=== PATIENT | male | born 1940 | race Caucasian/White ===

== ENCOUNTER → 2016-12-26 | Outpatient (CLI) | payer MEDICARE, OTHER ==
[~2016-12-26] MED LIST: AMLO5TAB2 PO; ASPI1TAB69 PO; DORZ2SOL EACH EYE; FENO145T2 PO; FIBE625T10 PO; FISH1000 PO; GLUC750C PO; HYDR25TA5 PO; LATA0.002 EACH EYE; LIPI40TA PO; LISI40TA PO; METF500T PO; MULT-135 PO
[2016-12-26 10:20] LABS: HEMATOCRIT 35.7 % (39.0-51.0); MEAN CELL VOLUME 89.6 FL (80.0-100.0); MEAN CORPUSCULAR HEMOGLOBIN 30.6 PG (27.0-34.0); MEAN CORPUSCULAR HGB CONC 34.2 % (32.0-36.0); PLATELET COUNT 199 TH/MM3 (150-450); RED BLOOD COUNT 3.99 MIL/MM3 (4.50-5.90); REVIEW FLAG FINAL; WHITE BLOOD COUNT 5.9 TH/MM3 (4.0-11.0)
--- NOTE | 2016-12-27 10:30 | EKG ---
Date Performed: 12/26/2016 Time Performed: 10:16:34 PTAGE: 76 years EKG: Sinus rhythm . Possible lateral infarct - age undetermined Inferior T wave changes are nonspecific Abnormal ECG NO PREVIOUS TRACING DOCTOR: Cary Morales Interpretating Date/Time 12/27/2016 10:25:57
== END ==
LOC: PHPRE 09:05
PROVIDERS: ATTEND Ophthalmology
DX: Z01.810 Encounter for preprocedural cardiovascular examination (principal); Z01.812 Encounter for preprocedural laboratory examination; H25.89 Other age-related cataract; I10 Essential (primary) hypertension; R94.31 Abnormal electrocardiogram [ECG] [EKG]
CPT/HCPCS: 85027; 93005

== ENCOUNTER → 2017-01-09 | Day surgery (SDC) | payer MEDICARE, OTHER ==
--- NOTE | 2016-12-29 16:33 | MH ---
cc: LOGAN AREVALO DATE OF ADMISSION: 01/09/2017 January 09, 2017 ADMISSION DIAGNOSIS Cataract right eye. HISTORY OF PRESENT ILLNESS This 76-year-old white male is coming through [facility] for the purpose of a lens extraction of the right eye with intraocular lens implant under local anesthesia. He has noticed decreasing visual acuity interfering with his daily activity in the right eye and elected to have the above procedure. His best corrected visual acuity is 20/40 in the right and 20/25 -2 in the left eye in room light. PAST MEDICAL HISTORY The patient has a history of hypertension and diabetes. 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 PAST SURGICAL HISTORY: Surgical history includes tonsillectomy, appendectomy, hemorrhoidectomy. MEDICATIONS Daily medications include 1. Lisinopril. 2. Hydrochlorothiazide. 3. Amlodipine. 4. Lipitor. 5. Metformin. 6. Tricor. 7. Aspirin. 8. Glucosamine. 9. Vitamin E. 10. Multivitamins. ALLERGIES NO KNOWN DRUG ALLERGIES SOCIAL HISTORY Does not smoke and has A Martini daily FAMILY HISTORY: family history is positive for mother with cataract and glaucoma. REVIEW OF SYSTEMS: HEAD: Patient denies severe headaches, dizziness or recent head injury. EARS: Patient denies hearing loss, ear pain, discharge or ringing in the ears. NOSE: Patient denies nasal discharge, obstruction or frequent colds. MOUTH AND THROAT: Patient denies soreness of the mouth or tongue, bleeding gums, trouble swallowing, changes in voice or sore throat. NECK: Patient denies neck pain or swelling, limitation of neck movement or neck injury. CARDIOPULMONARY SYSTEM: Patient denies shortness of breath, orthopnea, chronic cough, sputum production, hemoptysis, chest pain, wheezing, palpitations or light-headedness. GI SYSTEM: Patient denies poor appetite, nausea, vomiting, abdominal pain, ulcers, hemorrhoids or change in bowel habits. SYSTEM: The patient denies urinary frequency, dysuria, change in urine color. NERVOUS SYSTEM: Patient denies convulsions, vertigo, stroke, numbness or weakness. PHYSICAL EXAMINATION VITAL SIGNS: Blood pressure is 122/72, pulse 76, respirations 16. HEAD, EYES, EARS, NOSE, AND THROAT: Head: Normocephalic, atraumatic. Nose: Without rhinorrhea. Throat clear. NECK: Neck Supple. CHEST: Clear. HEART: Regular rhythm. ABDOMEN: The abdomen is without tenderness. EXTREMITIES: Without edema. NEUROLOGIC: Within normal limits. PSYCHIATRIC: Mental status within normal limits. EYE EXAMINATION The patient's best corrected visual acuity in room light 20/40 in the right eye and 20/25 -2 in the left. Visual patten are full to confrontation testing. Extraocular muscle exam reveals full versions with orthophoria at distance and near. Pupils are 3 mm equal, round, reactive to light without afferent defect. Anterior segment examination reveals A verruca on the left upper lid. There are bilateral nuclear sclerotic cataracts present pseudoexfoliation of the lens capsule was present in the right eye. Intraocular pressure is 18 in the right eye and 16 in the left by applanation tonometry. Dilated fundus exam revealed sharp disks with cup-to-disk ratio 0.1 bilaterally. 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 The macula is clear bilaterally. A posterior vitreous detachment is present bilaterally. IMPRESSION 1. Bilateral cataract right greater than left. 2. 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 3. Posterior vitreous detachment both eyes. 4. Ocular hypertension on medication. PLAN: The plan is lens extraction of the right eye with intraocular lens implant under local anesthesia through [facility]. Iris retractors will be used in this patient as his pupils do not dilate well. The patient has been cleared medically. He has been counseled as to the risks, benefits and alternatives elected to proceed. I feel that cataract surgery will improve the quality of life and activities of daily living in this patient. MD BAMBI Fritz/[place] /4:15 PM /4:23 PM
[~2017-01-09] VITALS: Ht 185.4 cm; Wt 96.5 kg
[~2017-01-09] MED LIST changes: +ACETYLCHOLINE CHL OPHT SOLN 1:100 2 ML VIAL ONE; +CYCLOPENTOLATE HCL 1% OPHT SOLN 2 ML BTL ONE; +DICLOFENAC SOD 0.1% OPHT SOLN 2.5 ML BTL ONE; +EPINEPHrine HCL (1:1000) 1 MG/ML VIAL ONE; +GATIFLOXACIN 0.5% OPHT SOLN 2.5 ML BTL ONE; +HYALURONIDASE/LIDOCAINE/BUPIVACAINE 4.5 ML SYR ONE; +HYALURONIDASE/LIDOCAINE/BUPIVACAINE 6 ML SYR ONE; +LIDOCAINE HCL 2% PF 5 ML VIAL ONE; +PHENYLEPHRINE HCL 2.5% OPTH SOLN 2 ML BTL ONE; +PROPARACAINE HCL 0.5% OPHT SOLN 15 ML BTL ONE; +PROPOFOL 200 MG/20 ML AMP ONE; +SODIUM CHLORID 0.9% 500 ML INJ 500 ML ONE; +TETRACAINE 0.5% OPTH SOLN 4 ML BTL ONE; +TROPICAMIDE 1% OPHT SOLN 15 ML BTL ONE; +VISCOAT OPHT IRRIG SOLN 0.75 ML SYRINGE RIGHT EYE ONE; +acetaZOLAMIDE SEQUELS 500 MG SUSTAINED RELEASE CAP ONE
[2017-01-09 06:29] VITALS: BP 138/69; PULSE 78; RESP 18; TEMP 97.9; O2SAT 97
[2017-01-09 06:35] VITALS: PULSE 79
[2017-01-09 07:10] VITALS: PULSE 73
[2017-01-09] MEDS: TOBRAMYCIN/DEXAMETHASONE OPTH OINT 3.5 GM TUBE ONE ×2 (08:08→08:37)
[2017-01-09] MEDS: PILOCARPINE HCL 2% OPHT SOLN 15 ML BTL ONE ×2 (08:36)
--- NOTE | 2017-01-09 09:07 | MP ---
cc: LOGAN BOGGS M.D. DATE OF SURGERY: 01/09/2017 PREOPERATIVE DIAGNOSIS Cataract, right eye. POSTOPERATIVE DIAGNOSIS Cataract, right eye. OPERATION Extracapsular cataract extraction with posterior chamber intraocular lens implant by phacoemulsification, right eye. SURGEON Logan Boggs M.D. ANESTHESIA Local. COMPLICATIONS None. INDICATIONS See history and physical previously dictated. OPERATIVE PROCEDURE The patient had adequate retrobulbar and eyelid blocks administered in the holding area and was brought to the operating room. The right eye was prepped and draped in the usual sterile ophthalmic manner. A lid speculum was inserted in the right eye. A 4-0 silk bridle suture was placed through the conjunctiva near the superior rectus muscle and it was tagged to the drape. A fornix-based conjunctival flap was prepared spanning approximately 5 mm in width. Hemostasis was obtained with wet-field cautery. A 3.5 mm groove was made 1 mm from the limbus and dissected up to the limbus in the form of a scleral pocket incision. A stab incision was then made at the 2 o'clock position. Viscoelastic was injected into the anterior chamber. In order to maintain an adequately dilated pupil, it was elected to use iris retractors in this case. Stab incisions were made at the 1 o'clock, 3 o'clock, 5 o'clock, 8 o'clock and 10 o'clock positions. Iris retractors were then inserted through the stab incisions in the peripheral cornea and positioned to enlarge the size of the pupil. The anterior chamber was entered with a 2.75 mm keratome through the scleral pocket incision. A 360 degree continuous curvilinear capsulorrhexis was then performed. Hydrodissection was utilized to divide the nucleus into inner and outer components and to separate the cortex from the capsule. Phacoemulsification was then utilized to remove the nucleus. The outer nuclear layer was removed with irrigation and aspiration and short bursts of ultrasound as necessary. The cortex was removed with the irrigation-aspiration handpiece. The posterior capsule was polished with the capsule polisher. Viscoelastic was injected into the capsular bag. The intraocular lens was inspected and found to be in good condition. The lens utilized was an Favio, model SA60AT, with a power of +19 diopters. The lens was inserted into the capsular bag. The five iris retractors were removed. The viscoelastic in the anterior chamber was then removed with the irrigation-aspiration hand piece. Viscoelastic was also removed from beneath the intraocular lens. The anterior chamber was filled with Miochol-E through the stab incision and pressurized. The wound was checked for leaks at this pressure and normalized pressure and there were none. The 4-0 bridle suture was removed. The conjunctival flap was brought down over the wound and secured with cautery. Pilocarpine 2% eye drops were instilled topically. The lid speculum was removed. TobraDex ophthalmic ointment was applied. The eye was double patched and shielded. The patient tolerated the procedure well and left the Operating Room in satisfactory condition. MD BAMBI Fritz/BT /8:53 AM /9:05 AM
[2017-01-09 09:15] VITALS: BP 123/68; PULSE 68; RESP 16; TEMP 98; O2SAT 100
== END | disposition home or self-care (01) ==
LOC: PHSDC 06:06
PROVIDERS: ATTEND Ophthalmology
DX: H26.9 Unspecified cataract (principal); H43.813 Vitreous degeneration, bilateral; I10 Essential (primary) hypertension; E11.9 Type 2 diabetes mellitus without complications; Z79.84 Long term (current) use of oral hypoglycemic drugs; Z79.82 Long term (current) use of aspirin
CPT/HCPCS: 00142; 66984; J0171; J7040; V2632

== ENCOUNTER → 2017-08-11 | Outpatient (CLI) | payer MEDICARE, OTHER ==
[~2017-08-11] MED LIST changes: -ACETYLCHOLINE CHL OPHT SOLN 1:100 2 ML VIAL ONE; +ASPI1TAB57 PO; -CYCLOPENTOLATE HCL 1% OPHT SOLN 2 ML BTL ONE; -DICLOFENAC SOD 0.1% OPHT SOLN 2.5 ML BTL ONE; -EPINEPHrine HCL (1:1000) 1 MG/ML VIAL ONE; +FISH500C PO; -GATIFLOXACIN 0.5% OPHT SOLN 2.5 ML BTL ONE; -HYALURONIDASE/LIDOCAINE/BUPIVACAINE 4.5 ML SYR ONE; -HYALURONIDASE/LIDOCAINE/BUPIVACAINE 6 ML SYR ONE; -LIDOCAINE HCL 2% PF 5 ML VIAL ONE; +MULT-65 PO; -PHENYLEPHRINE HCL 2.5% OPTH SOLN 2 ML BTL ONE; -PROPARACAINE HCL 0.5% OPHT SOLN 15 ML BTL ONE; -PROPOFOL 200 MG/20 ML AMP ONE; -SODIUM CHLORID 0.9% 500 ML INJ 500 ML ONE; -TETRACAINE 0.5% OPTH SOLN 4 ML BTL ONE; -TROPICAMIDE 1% OPHT SOLN 15 ML BTL ONE; -VISCOAT OPHT IRRIG SOLN 0.75 ML SYRINGE RIGHT EYE ONE; -acetaZOLAMIDE SEQUELS 500 MG SUSTAINED RELEASE CAP ONE
[2017-08-11 08:46] LABS: HEMATOCRIT 35.1 % (39.0-51.0); MEAN CELL VOLUME 90.2 FL (80.0-100.0); MEAN CORPUSCULAR HEMOGLOBIN 32.2 PG (27.0-34.0); MEAN CORPUSCULAR HGB CONC 35.7 % (32.0-36.0); PLATELET COUNT 237 TH/MM3 (150-450); RED BLOOD COUNT 3.89 MIL/MM3 (4.50-5.90); RED CELL DISTRIBUTION WIDTH 14.3 % (11.6-17.2); REVIEW FLAG FINAL; WHITE BLOOD COUNT 5.5 TH/MM3 (4.0-11.0)
[2017-08-11 08:56] LABS: APTT (PATIENT) 29.9 SEC (24.3-30.1); PROTHROMBIN TIME - PATIENT 11.3 SEC (9.8-11.6)
[2017-08-11 09:18] LABS: BICARBONATE 24.3 MEQ/L (21.0-32.0); POTASSIUM 4.2 MEQ/L (3.5-5.1)
[2017-08-11 10:20] LABS: BLOOD, URINE NEG (NEG); GLUCOSE,URINE NEG (NEG); KETONE, URINE NEG (NEG); NITRITE,URINE NEG (NEG); PH, URINE 6.5 (5.0-8.5); URINE COLOR YELLOW (YELLW/STRAW)
[2017-08-11 10:29] LABS: BACTERIA, URINE FEW /hpf; RBC, URINE 0 /hpf (0-3); WBC, URINE 0-2 /hpf (0-5)
[2017-08-11 10:30] LABS: COMMENT (UR) CULT NOT INDICATED; CULTURE IF INDICATED CULT NOT INDICATED
--- NOTE | 2017-08-11 17:13 | EKG ---
Date Performed: 08/11/2017 Time Performed: 08:15:27 PTAGE: 76 years EKG: Sinus rhythm WITH OCCASIONAL VENTRICULAR PREMATURE COMPLEXES ATRIAL ABNORMALITY CANNOT EXCLUDE SEPTAL MYOCARDIAL INFARCTION, OF INDETERMINATE AGE Compared to previous tracing, the PVCs are new. Lead V6 was probabl y misplaced on previous tracing. ABNORMAL ECG PREVIOUS TRACING : 12/26/2016 10.16 DOCTOR: Gaetano Covarrubias Interpretating Date/Time 08/11/2017 17:11:56
== END ==
LOC: CPRE 07:54
PROVIDERS: ATTEND Orthopaedic Surgery
DX: Z01.810 Encounter for preprocedural cardiovascular examination (principal); Z01.812 Encounter for preprocedural laboratory examination; M16.11 Unilateral primary osteoarthritis, right hip; M79.609 Pain in unspecified limb; I10 Essential (primary) hypertension; R94.31 Abnormal electrocardiogram [ECG] [EKG]
CPT/HCPCS: 36415; 80048; 81001; 85027; 85610; 85730; 93005

== ENCOUNTER 2017-08-28 05:11 | Inpatient (IN) | payer MEDICARE, OTHER ==
[~2017-08-28] VITALS: Ht 188 cm; Wt 98.1 kg
[~2017-08-28 05:11] MED LIST changes: -ASPI1TAB69 PO; -FISH1000 PO; -MULT-135 PO
[2017-08-28] MEDS ORDERED: LACTATED RINGER'S 1000 ML IV PRN (06:00)
[2017-08-28] MEDS ORDERED: POVIDONE IODINE 5% (ANTISEPSIS KIT) 4 APPLICATIONS EACH NARE PRN (06:00)
[2017-08-28] MEDS ORDERED: METOPROLOL TARTRATE 25 MG TAB PO PRN (06:00)
[2017-08-28] MEDS ORDERED: SODIUM CHLORID 0.9% 500 ML IV PRN (06:00)
[2017-08-28] MEDS ORDERED: CHLORHEXIDINE GLUCONATE 2 % 1 PACK (2 CLOTHS) TOPICAL PRN (06:00)
[2017-08-28] MEDS ORDERED: GENTAMICIN SULFATE 80 MG/2 ML VIAL ONE (06:09)
[2017-08-28] MEDS ORDERED: CHLORHEXIDINE GLUCONATE 4% SOLN 120 ML BTL TOPICAL SCH (06:15)
[2017-08-28] MEDS ORDERED: ACETAMINOPHEN 1000 MG/100 ML 100 ML IV ONE (06:33)
[2017-08-28] MEDS ORDERED: FAMOTIDINE 20 MG/2 ML VIAL ONE (06:33)
[2017-08-28] MEDS ORDERED: BISACODYL 10 MG SUPP RECTAL PRN (06:45)
[2017-08-28] MEDS ORDERED: TRANEXAMIC ACID INJ 0 MG in SODIUM CHLORIDE 0.9% INJ 100 ML IV SCH (06:45)
[2017-08-28] MEDS ORDERED: MAGNESIUM HYDROXIDE SUSP 30 ML CUP PO PRN (06:45)
--- NOTE | 2017-08-28 06:48 | HHI.FF ---
Face to Face Verification Diagnosis: (1) Status post total hip replacement, right Physical Therapy Gait training Hip: Total hip, Protocol: Right, Posterior hip precautions, Progress to weight bearing Canvas Knee Splint: When in bed & 2 pillows btw thighs Right LE Weight Bearing: WB as tolerated Right LE Range of Motion: Active ROM Nursing Nursing: Dressing changes (Begin dressing changes on postop day 7.) Dressing Changes: Daily dressing change, Coverderm/Primapore Additional Instructions Begin dressing changes on postop day 7. Remove steristrips on postop day 14. I have seen patient Alexx Aguirre on 08/28/17. My clinical findings support the need for the requested home health care services because: Ltd mobility - disease progression Limited ability to care for self High risk of falls I certify that my clinical findings support that this patient is homebound because: Post-op weakness Unsteady gait/balance Unsafe to leave home unassisted Praveen Ferrera MD (Charles) Aug 28, 2017 06:48
[2017-08-28] MEDS ORDERED: SODIUM CHLORIDE 0.9% IV SCH ×2 (07:00→10:00)
[2017-08-28] MEDS ORDERED: EXPAREL PERI-ARTICULAR INJECTION (TOTAL VOL. 60 ML) P-ARTICULR SCH ×2 (07:00)
[2017-08-28] MEDS ORDERED: TRANEXAMIC ACID IV SCH ×2 (07:00→10:00)
[2017-08-28] MEDS: ceFAZolin 2 GM PREMIX 50 ML IV SCH (07:46)
[2017-08-28] MEDS ORDERED: MORPHINE SULFATE 8 MG/ML INJ IV PUSH PRN (08:00)
[2017-08-28] MEDS ORDERED: ONDANSETRON HCL 4 MG/2 ML VIAL IVP PRN (08:00)
[2017-08-28] MEDS ORDERED: ACETAMINOPHEN/HYDROcodone 325 MG/7.5 MG TAB PO PRN ×2 (08:00)
[2017-08-28] MEDS ORDERED: ZOLPIDEM TARTRATE 5 MG TAB PO PRN (08:00)
[2017-08-28] MEDS ORDERED: PROPOFOL 200 MG/20 ML AMP ONE (08:45)
[2017-08-28] MEDS: LISINOPRIL 20 MG TAB PO SCH (09:00)
[2017-08-28] MEDS: DORZOLAMIDE 2% OPTH SOLN 200 DROP/10 ML BTLO EACH EYE SCH ×2 (09:00→20:29)
[2017-08-28] MEDS: FENOFIBRATE 145 MG TAB PO SCH (09:00)
[2017-08-28] MEDS: MULTIVITAMIN TAB PO SCH (09:00)
[2017-08-28] MEDS: amLODIPine BESYLATE 5 MG TAB PO SCH (09:00)
[2017-08-28] MEDS: ASPIRIN EC 81 MG TABEC PO SCH ×2 (09:00→20:31)
[2017-08-28] MEDS: HYDROCHLOROTHIAZIDE 25 MG TAB PO SCH (09:00)
[2017-08-28] MEDS ORDERED: NON-FORMULARY DRUG (Omega-3 Fatty Acids (Fish Oil) 1 CAP) PO SCH (09:00)
[2017-08-28] MEDS: metFORMIN HCL 500 MG TAB PO SCH ×2 (09:00→17:27)
[2017-08-28] MEDS ORDERED: DO NOT ADM ANY ANTICOAGULANT DRUGS PRN (09:00)
[2017-08-28] MEDS ORDERED: GLUCOSAMINE 750 MG PO SCH (09:00)
--- NOTE | 2017-08-28 09:19 | HHI.PR ---
Immediate Post Op Note Procedure Date: Aug 28, 2017 Pre Op Diagnosis: (1) Primary osteoarthritis of right hip Post Op Diagnosis: (1) Primary osteoarthritis of right hip Surgeon: Bishop Ferrera MD Casting Carrier(s): MILLA Mandujano Procedure: Right Total Hip Arthroplasty with Jennifer Prosthesis. Findings: OA right hip Complications: 0 Specimen(s) removed: 0 Estimated blood loss: 200ml. Anesthesia: Spinal, Local Drains: None IVF Patient to: PACU Patient Condition: Good Implant/Devices: SEE IMPLANT LOG (if applicable) Date/Time of Procedure: SEE SURGICAL CARE RECORD Praveen Ferrera MD (Charles) Aug 28, 2017 09:19
[2017-08-28] MEDS ORDERED: HYDR-3580 PO (09:28)
[2017-08-28] MEDS ORDERED: ECASA81 PO (09:28)
[2017-08-28] MEDS ORDERED: Post-op Orders (for Pharmacy) MISC XX ONE (09:30)
[2017-08-28] MEDS: LACTATED RINGER'S 1000 ML INJ 1,000 ML IV SCH (10:00)
[2017-08-28] MEDS: KETOROLAC TROMETHAMINE 30 MG/ML (IVP) VIAL IVP SCH ×3 (10:16→20:31)
--- NOTE | 2017-08-28 10:19 | MP ---
cc: Hernán DAVE. DATE OF SURGERY 08/28/2017 PREOPERATIVE DIAGNOSIS Primary osteoarthritis right hip. POSTOPERATIVE DIAGNOSIS Primary osteoarthritis right hip. OPERATION PERFORMED Right total hip arthroplasty with [place] prosthesis. SURGEON Rowan Dave MD FACILITY COORDINATOR MILLA Mandujano ANESTHESIA Spinal with supplemental local. INDICATIONS AND FINDINGS This 76-year-old man has had in excess of 4 years of right hip pain progressively worsening to limit his ambulation tolerance and interfere with his activities of daily living as detailed in the history and physical examination. He has tried analgesics, antiinflammatory agents, activity modification, exercise and ambulatory aids without benefits or significant improvement and substantial continued worsening. Physical findings showed limitation of range of motion of the hip with an antalgic gait and tenderness on motion. X-rays showed severe arthritis with loss of articular cartilage to bone on bone with osteophytes, eburnation and subchondral cyst formation. Operative findings were consistent with the radiographic findings with there being loss of articular cartilage to exposed subchondral bone and fairly significant osteophytes. PROSTHESIS USED Jennifer prosthesis with the acetabular component being a Tritanium Cluster Cup size 54-mm outer diameter with a 0-degree X3 polyethylene liner, size 36-mm inner diameter. The femoral component was an Accolade II, size 7 x 127-degree neck angle. The head was a [place] Chromium 36 mm outer diameter, -5-mm neck length. PROCEDURE The patient was brought to the clean-air operating suite and a spinal anesthetic was administered. He was placed in lateral position on the Biomet lateral positioner with the right hip up. He was then prepped with alcohol, Hibiclens and ChloraPrep and draped in the usual manner with the hip draped free. An appropriate time-out procedure was carried out. A posterolateral incision was then made going from the mid-trochanteric area posterior and superiorly. The incision was deepened through the subcutaneous tissues to the gluteus sekou and fascia jennifer which were incised in line with their fibers. Soft tissue dissection was carried out to the posterior aspect of the hip. A Charnley retractor was inserted with would towels. The soft tissues were cleaned from the posterior aspect of the hip. The conjoined tendon of the piriformis and obturators was then released and deflected off the capsule which was then opened longitudinally with a posteriorly-based flap. The posterior aspect of the hip was exposed. The hip was then dislocated. The femoral neck was transected at the appropriate level with the oscillating saw. Femoral preparation was initiated with a box osteotome, followed by a curette and canal-finding awl. Broaching then started at 5.0 and went up to size 7. When the size 7 broach was seated appropriately, calcar planing was carried out. The hip was repositioned with retractors about the acetabulum. The soft tissues were cleaned from the acetabulum with electrocautery. Reaming was initiated with a 47-mm reamer which was used to medialize to the teardrop and then serial reaming by 1-mm increments up to size 53. At 54 trial would not seat, therefore reaming was carried out to 54 mm. The trial prosthesis was inserted and appeared appropriate. This was then removed and the acetabulum cleaned with pulse lavage. The acetabular component, which was a size 54 mm outer diameter Tritanium Cluster Shell was impacted into place. A single drill hole was made and a screw inserted. The liner was inserted. The periacetabular tissues were then injected with Exparel. Trial reduction was then carried out with the 127-degree neck length and -5 mm trial. This showed excellent mobility and excellent stability. There was no pistoning. The leg lengths appeared appropriate. The trial was removed, followed by additional broaching, followed by further calcar planing was carried out. Osteophytes were trimmed. The remainder of the Exparel was injected throughout the hip. The medullary canal was irrigated. The femoral component was impacted into place and was seated appropriately. A trial reduction was again carried out with the same size and was appropriate. A -5-mm neck length, 2-mm outer diameter head was positioned onto the cleaned and dried trunnion and impacted into place. The hip was reduced. There was excellent motion. There was excellent stability. There was no pistoning. The leg lengths appeared appropriate. Wound closure then commenced using #1 Vicryl transosseous sutures with a Krackow technique to reattach the posterior capsule and external rotators so the posterior aspect of the greater trochanter. After this was done, the upper portion of the iliotibial band and the gluteus were repaired with #1 Vicryl interrupted [id number] sutures. The subcutaneous tissue were closed with 2-0 Vicryl interrupted simple sutures with buried knots. The skin was closed with a continuous subcuticular closure of 4-0 barbed suture. The wound was dressed with Steri-Strips, followed by dry dressing in the form of a silver-impregnated dressing. The leg was placed into a knee immobilizer. The patient was transferred to the recovery room in satisfactory condition having tolerated the procedure well. COUNTS Correct. SPECIMEN None. ESTIMATED BLOOD LOSS 200 mL. MD DORETHA Arndt/SSB /9:33 AM /9:44 AM
--- NOTE | 2017-08-28 10:27 | RADRPT ---
EXAM DATE/TIME: 08/28/2017 10:04 [place] COMPARISON: No previous studies available for comparison. INDICATIONS : Post-op right hip replacement. MEDICAL HISTORY : None. SURGICAL HISTORY : Right hip replacement. ENCOUNTER: Initial ACUITY: 1 day PAIN SCORE: 0/10 LOCATION: Right Hip FINDINGS: A two view examination of the right hip was performed. Total arthroplasty. Both the femoral and aceta bular components are appropriate position without fracture. CONCLUSION: Appropriate postoperative appearance of the right hip status post total arthroplasty. Marco Max MD on August 28, 2017 at 10:22 Board Certified Radiologist. This report was verified electronically.
[2017-08-28 11:22] VITALS: BP 139/63; PULSE 66; RESP 18; TEMP 95.4; O2SAT 98
--- NOTE | 2017-08-28 13:35 | PD.CONS ---
HPI Service [facility] Consult Requested By Primary Care Physician Christ Fletcher MD Diagnoses: (1) Status post total hip replacement, right (2) Primary osteoarthritis of right hip History of Present Illness Mr. Aguirre is a 76 year old male. He is hospitalized for a right hip replacement surgery. I am seeing him post op. He has already been ambulatory greater than 20ft. Presently pain is controlled and no nausea. At baseline he has DM2, HTN, Hyperlipidemia, and Gout. No new complaints other than some controlled post op pain. No history of WI or COPD. Review of Systems Constitutional: DENIES: Fatigue, Fever, Chills Eyes: DENIES: Blurred vision, Diplopia, Eye inflammation Ears, nose, mouth, throat: DENIES: Tinnitus, Hearing loss, Vertigo Respiratory: DENIES: Apneas, Cough, Wheezing, Shortness of breath Cardiovascular: DENIES: Chest pain, Palpitations, Syncope Gastrointestinal: DENIES: Abdominal pain, Black stools, Bloody stools, Constipation Musculoskeletal: DENIES: Joint pain, Muscle aches, Stiffness Integumentary: DENIES: Abnormal pigmentation, Nail changes, Pruritus, Rash Hematologic/lymphatic: DENIES: Bruising, Lymphadenopathy Immunologic/allergic: DENIES: Eczema, Urticaria Neurologic: DENIES: Abnormal gait, Headache, Paresthesias Psychiatric: DENIES: Anxiety, Confusion, Hallucinations Past Family Social History Allergies: Coded Allergies: No Known Allergies (Unverified Allergy, Unknown, 08/28/17) Past Medical History OA Glaucoma DM2 HTN Hyperlipidemia Past Surgical History Tonsillectomy Hemorrhoid surgery Reported Medications Reported Meds & Active Scripts Active Hydrocodone-Acetamin 7.5-325 (Hydrocodone/Acetaminophen) 7.5 Mg-325 Mg Tablet 1 Tab PO Q4H PRN Reported Multi-Vitamin Daily (Multiple Vitamin) 1 Tab Tab 1 Tab PO DAILY Fish Oil ([place]-3 Fatty Acids) 60 Mg-90 Mg-500 Mg Cap 1 Cap PO BID Hydrochlorothiazide 25 Mg Tab 25 Mg PO DAILY Lisinopril 40 Mg Tab 40 Mg PO DAILY Aspirin 81 (Aspirin) 81 Mg Tabdr 81 Mg PO DAILY Fiber (Calcium Polycarbophil) 625 Mg Tab 1,250 Mg PO PRN Glucosamine (Glucosamine Sulfate) 750 Mg Cap 750 Mg PO DAILY Latanoprost Opth Drops (Latanoprost) 0.005% Drops 1 Drop EACH EYE HS Refrigerate until opened. Dorzolamide Opth Drops (Dorzolamide HCl) 2% Soln 1 Drop EACH EYE BID Fenofibrate 145 Mg Tab 145 Mg PO DAILY Metformin (Metformin HCl) 500 Mg Tab 500 Mg PO BIDPC With meals Lipitor (Atorvastatin Calcium) 40 Mg Tab 60 Mg PO HS Amlodipine (Amlodipine Besylate) 5 Mg Tab 5 Mg PO DAILY Active Ordered Medications Administered Medications Medications (Trade) Dose Ordered Sig/Farhana Route PRN Reason Start Time Stop Time Status Last Admin Dose Admin Povidone Iodine (Betadine 5% Antisepsis Kit) 1 applic CUTCH CLEANER PRN EACH NARE SEE LABEL COMMENTS 08/28/17 06:00 08/31/17 05:59 08/28/17 06:17 Chlorhexidine Gluconate (Chlorhexidine 2% Cloth) 3 pack CUTCH CLEANER PRN TOPICAL SEE LABEL COMMENTS 08/28/17 06:00 08/31/17 05:59 08/28/17 05:30 Chlorhexidine Gluconate (Hibiclens 4% Top Soln) 1 applic ONCE TOPICAL 08/28/17 06:15 08/31/17 06:14 08/28/17 06:00 Cefazolin Sodium/ Dextrose 50 ml @ 100 mls/hr CUTCH CLEANER IV 08/28/17 07:00 08/29/17 06:59 08/28/17 07:46 Tranexamic Acid 981 mg/Sodium Chloride 109.81 ml @ 200 mls/ hr ONCE IV 08/28/17 10:00 08/28/17 16:00 08/28/17 10:06 Lactated Ringer's 1,000 ml @ 80 mls/hr [id number] IV 08/28/17 08:00 08/28/17 10:00 Cefazolin Sodium 1000 mg/Sodium Chloride 100 ml @ 200 mls/hr Q6H IV 08/28/17 14:00 08/29/17 02:29 08/28/17 13:07 Ketorolac Tromethamine (Toradol Inj) 15 mg Q6H IVP 08/28/17 08:00 08/30/17 02:01 08/28/17 13:08 Family History DM2 and HTN in mother Social History No smoking No illicit drug abuse Daily alcohol consumption (2 drinks) Physical Exam Vital Signs Vital Signs Date Time Temp Pulse Resp B/P (MAP) Pulse Ox O2 Delivery O2 Flow Rate FiO2 08/28/17 10:30 97.7 63 17 123/59 (80) 99 Room Air 08/28/17 10:15 68 17 119/58 (78) 99 Room Air 08/28/17 10:00 69 17 98/51 (67) 100 Room Air 08/28/17 09:45 76 17 104/56 (72) 100 Room Air 08/28/17 09:29 97.6 78 17 110/58 (75) 100 Simple Mask 6 08/28/17 06:09 98.9 52 18 142/60 (87) 98 Physical Exam GENERAL: NAD, A&Ox3 SKIN: Warm and dry. HEAD: Normocephalic. EYES: No scleral icterus. No injection or drainage. NECK: Supple, trachea midline. No JVD or lymphadenopathy. CARDIOVASCULAR: Regular rate and rhythm without murmurs, gallops, or rubs. RESPIRATORY: Breath sounds equal bilaterally. No accessory muscle use. GASTROINTESTINAL: Abdomen soft, non-tender, nondistended. MUSCULOSKELETAL: No cyanosis, or edema. Right hip bandaged, limited ROM at right hip. BACK: Nontender without obvious deformity. No CVA tenderness. Imaging Last Impressions Hip X-Ray 08/28/17 0000 Signed Impressions: Service Date/Time: Monday, August 28, 2017 10:04 - CONCLUSION: Appropriate postoperative appearance of the right hip status post total arthroplasty. Marco Max MD Assessment and Plan Problem List: (1) Primary osteoarthritis of right hip ICD Code: M16.11 - Unilateral primary osteoarthritis, right hip (2) Status post total hip replacement, right ICD Code: Z96.641 - Presence of right artificial hip joint Assessment and Plan Assessment and Plan 76 year old male admitted for right hip replacement surgery Status post right hip replacement Osteoarthritis Post op Doing well Follow CBC in AM Ortho following Glaucoma Continue baseline eyedrop treatments DM2 Insulin Sliding Scale Diabetic Diet Resume baseline treatments at discharge HTN Hyperlipidemia Resume baseline treatments Follow BP Follow lipid levels as an outpatient Jerrell Burnett MD Aug 28, 2017 13:35
[2017-08-28] MEDS ORDERED: GLUCAGON 1 MG/ML VIAL OTHER PRN (13:45)
[2017-08-28] MEDS ORDERED: DEXTROSE 50% IN WATER 50 ML VIAL(D50) IV PUSH PRN (13:45)
[2017-08-28] MEDS: INSULIN ASPART SUPPLEMENTAL SCALE SQ SCH ×2 (17:00→20:31)
--- NOTE | 2017-08-28 17:52 | HHI.PR ---
Subjective Remarks NOT SEEN Objective Vitals Vital Signs Date Time Temp Pulse Resp B/P (MAP) Pulse Ox O2 Delivery O2 Flow Rate FiO2 08/28/17 11:22 95.4 66 18 139/63 (88) 98 08/28/17 10:30 97.7 63 17 123/59 (80) 99 Room Air 08/28/17 10:15 68 17 119/58 (78) 99 Room Air 08/28/17 10:00 69 17 98/51 (67) 100 Room Air 08/28/17 09:45 76 17 104/56 (72) 100 Room Air 08/28/17 09:29 97.6 78 17 110/58 (75) 100 Simple Mask 6 08/28/17 06:09 98.9 52 18 142/60 (87) 98 I/O 08/27/17 08/27/17 08/27/17 08/28/17 08/28/17 08/28/17 07:00 15:00 23:00 07:00 15:00 23:00 Intake Total 2080 ml Output Total 150 ml Balance 1930 ml Intake Oral 480 ml Other 1600 ml Output Estimated Blood Loss 150 ml # Voids 1 # Bowel Movements 0 Imaging Last Impressions Hip X-Ray 08/28/17 0000 Signed Impressions: Service Date/Time: Monday, August 28, 2017 10:04 - CONCLUSION: Appropriate postoperative appearance of the right hip status post total arthroplasty. Marco Max MD Objective Remarks GENERAL: NAD, A&Ox3 SKIN: Warm and dry. HEAD: Normocephalic. EYES: No scleral icterus. No injection or drainage. NECK: Supple, trachea midline. No JVD or lymphadenopathy. CARDIOVASCULAR: Regular rate and rhythm without murmurs, gallops, or rubs. RESPIRATORY: Breath sounds equal bilaterally. No accessory muscle use. GASTROINTESTINAL: Abdomen soft, non-tender, nondistended. MUSCULOSKELETAL: No cyanosis, or edema. Right hip bandaged, limited ROM at right hip. BACK: Nontender without obvious deformity. No CVA tenderness. A/P Problem List: (1) Primary osteoarthritis of right hip ICD Code: M16.11 - Unilateral primary osteoarthritis, right hip (2) Status post total hip replacement, right ICD Code: Z96.641 - Presence of right artificial hip joint Assessment and Plan 76 year old male admitted for right hip replacement surgery Status post right hip replacement Osteoarthritis Post op Doing well Follow CBC in AM Ortho following Glaucoma Continue eyedrop treatments DM2 Insulin Sliding Scale Diabetic Diet Resume baseline treatments at discharge HTN Hyperlipidemia Resume baseline treatments Follow BP Follow lipid levels as an outpatient Jerome Stevenson MD Aug 28, 2017 17:52
[2017-08-28] MEDS ORDERED: LORazepam 1 MG TAB PO PRN (18:15)
[2017-08-28] MEDS: THIAMINE HCL 100 MG TAB PO SCH (18:30)
[2017-08-28 20:45] VITALS: BP 139/69; PULSE 69; RESP 16; TEMP 98.7; O2SAT 99
[2017-08-28] MEDS ORDERED: LATANOPROST 0.005% OPHT SOLN 2.5 ML BTL EACH EYE SCH (21:00)
[2017-08-28] MEDS ORDERED: ATORVASTATIN 40 MG TAB PO SCH (21:00)
[2017-08-29 00:25] VITALS: BP 129/59; PULSE 84; RESP 16; TEMP 97.6; O2SAT 98
[2017-08-29] MEDS: KETOROLAC TROMETHAMINE 30 MG/ML (IVP) VIAL IVP SCH ×3 (02:13→13:43)
[2017-08-29 04:35] VITALS: BP 134/62; PULSE 74; RESP 16; TEMP 98; O2SAT 97
[2017-08-29 05:49] LABS: AUTOMATED NEUTROPHIL # 4.4 TH/MM3 (1.8-7.7); BASOPHIL % 0.5 % (0.0-2.0); EOSINOPHIL # 0.1 TH/MM3 (0-0.4); EOSINOPHIL % 2.2 % (0.0-4.0); HEMATOCRIT 29.5 % (39.0-51.0); HEMO FLAGS DIFF FINAL; LYMPH % 19.2 % (9.0-44.0); LYMPHOCYTE # 1.2 TH/MM3 (1.0-4.8); MEAN CELL VOLUME 90.4 FL (80.0-100.0); MEAN CORPUSCULAR HEMOGLOBIN 31.9 PG (27.0-34.0); MEAN CORPUSCULAR HGB CONC 35.2 % (32.0-36.0); NEUT % 69.1 % (16.0-70.0); PLATELET COUNT 142 TH/MM3 (150-450); RED BLOOD COUNT 3.26 MIL/MM3 (4.50-5.90); RED CELL DISTRIBUTION WIDTH 13.8 % (11.6-17.2); WHITE BLOOD COUNT 6.3 TH/MM3 (4.0-11.0)
[2017-08-29 05:50] LABS: HEMATOCRIT 29.9 % (39.0-51.0); REVIEW FLAG FINAL
[2017-08-29 06:12] LABS: ALT (GPT) 22 U/L (12-78); ANION GAP 9 MEQ/L (5-15); AST (GOT) 47 U/L (15-37); BICARBONATE 25.4 MEQ/L (21.0-32.0); CHLORIDE 106 MEQ/L (98-107); GLOMERULAR FILTRATION RATE 51 ML/MIN (>89); POTASSIUM 3.9 MEQ/L (3.5-5.1); SODIUM (NA) 140 MEQ/L (136-145)
[2017-08-29 06:13] LABS: BLOOD UREA NITROGEN 33 MG/DL (7-18); TOTAL BILIRUBIN ADULT 0.4 MG/DL (0.2-1.0)
[2017-08-29 06:14] LABS: ALKALINE PHOSPHATASE 38 U/L (45-117)
[2017-08-29 07:35] VITALS: BP 118/57; PULSE 74; RESP 18; TEMP 96.7; O2SAT 98
[2017-08-29] MEDS: INSULIN ASPART SUPPLEMENTAL SCALE SQ SCH ×2 (08:00→12:00)
--- NOTE | 2017-08-29 08:05 | PD.ORT.PN ---
Subjective Post Op Day #: 1 Subjective Remarks The patient is doing well. He has no real complaints with his hip. He did well with physical therapy. Distance Walked 230 feet. Objective Vitals Vital Signs Date Time Temp Pulse Resp B/P (MAP) Pulse Ox O2 Delivery O2 Flow Rate FiO2 08/29/17 07:35 96.7 74 18 118/57 (77) 98 08/29/17 04:35 98.0 74 16 134/62 (86) 97 08/29/17 00:25 97.6 84 16 129/59 (82) 98 08/28/17 20:45 98.7 69 16 139/69 (92) 99 08/28/17 18:29 20 08/28/17 11:22 95.4 66 18 139/63 (88) 98 08/28/17 10:30 97.7 63 17 123/59 (80) 99 Room Air 08/28/17 10:15 68 17 119/58 (78) 99 Room Air 08/28/17 10:00 69 17 98/51 (67) 100 Room Air 08/28/17 09:45 76 17 104/56 (72) 100 Room Air 08/28/17 09:29 97.6 78 17 110/58 (75) 100 Simple Mask 6 I/O 08/28/17 08/28/17 08/28/17 08/29/17 08/29/17 08/29/17 07:00 15:00 23:00 07:00 15:00 23:00 Intake Total 2080 ml 1041 ml 460 ml Output Total 150 ml Balance 1930 ml 1041 ml 460 ml Intake Oral 480 ml 360 ml 360 ml IV Total 681 ml 100 ml Other 1600 ml Output Estimated Blood Loss 150 ml # Voids 1 1 1 # Bowel Movements 0 0 0 Result Diagram: 08/29/17 0448 08/29/17 0448 Imaging Last 72 hours Impressions Hip X-Ray 08/28/17 0000 Signed Impressions: Service Date/Time: Monday, August 28, 2017 10:04 - CONCLUSION: Appropriate postoperative appearance of the right hip status post total arthroplasty. Marco Max MD Objective Remarks He is resting comfortably, supine in bed. The dressing is dry and intact. His neurovascular status is intact. Assessment & Plan Ortho Post Op Day #: 1 Problem List: (1) Status post total hip replacement, right ICD Codes: Z96.641 - Presence of right artificial hip joint Plan: Continue postop care and PT. I have discussed his findings and the surgery with him. Assessment and Plan Condition: Good. Orthopedically stable. DVT prophylaxis: Aspirin, ONEL stockings, sequentials. Discharge plans: Home with home health care. Prescription: [place] 7.5/325 Appointment was made from the office. Praveen Ferrera MD ([place]) Aug 29, 2017 08:05
[2017-08-29] MEDS: LACTATED RINGER'S 1000 ML INJ 1,000 ML IV SCH (09:00)
[2017-08-29] MEDS: DORZOLAMIDE 2% OPTH SOLN 200 DROP/10 ML BTLO EACH EYE SCH (09:00)
[2017-08-29] MEDS: HYDROCHLOROTHIAZIDE 25 MG TAB PO SCH (09:00)
[2017-08-29] MEDS: LISINOPRIL 20 MG TAB PO SCH (09:00)
[2017-08-29] MEDS: FENOFIBRATE 145 MG TAB PO SCH (09:15)
[2017-08-29] MEDS: THIAMINE HCL 100 MG TAB PO SCH (09:15)
[2017-08-29] MEDS: metFORMIN HCL 500 MG TAB PO SCH (09:15)
[2017-08-29] MEDS: MULTIVITAMIN TAB PO SCH (09:16)
[2017-08-29] MEDS: ASPIRIN EC 81 MG TABEC PO SCH (09:16)
[2017-08-29] MEDS: amLODIPine BESYLATE 5 MG TAB PO SCH (09:17)
--- NOTE | 2017-08-29 10:11 | HHI.DS ---
Discharge Summary Admission Date Aug 28, 2017 at 05:11 Admitting Diagnosis Primary osteoarthritis, right hip. Diagnosis: (1) Status post total hip replacement, right Diagnosis: Principal ICD Codes: Z96.641 - Presence of right artificial hip joint Procedures Right total hip arthroplasty with Jennifer prosthesis on 08/28/2017 Brief History This is a 76 year old male patient has had long-standing right hip pain that has been progressively worsening over the past several months. He has not responded to conservative measures including anti-inflammatory agents, analgesics, external supports and exercise. His physical findings included limitation of range of motion in the hip with tenderness on range of motion. There is crepitation on motion as well. Radiographic findings showed loss of articular cartilage to bone on bone with osteophytes in the acetabulum and femur. CBC/BMP: 08/29/17 0448 08/29/17 0448 Significant Findings Laboratory Tests Test 08/29/17 04:48 Red Blood Count 3.26 MIL/MM3 (4.50-5.90) Hemoglobin 10.4 GM/DL (13.0-17.0) Hematocrit 29.5 % (39.0-51.0) Platelet Count 142 TH/MM3 (150-450) Monocytes (%) (Auto) 9.0 % (0.0-8.0) Blood Urea Nitrogen 33 MG/DL (7-18) Creatinine 1.37 MG/DL (0.60-1.30) Random Glucose 107 MG/DL (74-106) Total Protein 6.1 GM/DL (6.4-8.2) Albumin 3.1 GM/DL (3.4-5.0) Calcium Level 8.4 MG/DL (8.5-10.1) Alkaline Phosphatase 38 U/L (45-117) Aspartate Amino Transf (AST/SGOT) 47 U/L (15-37) Estimat Glomerular Filtration Rate 51 ML/MIN (>89) PE at Discharge He is resting comfortably, supine in bed. The dressing is dry and intact. His neurovascular status is intact. Hospital Course The patient was admitted to the hospital on the above-noted date. He was then taken to the operating room where a total hip arthroplasty was carried out as noted above. He tolerated the procedure well. DVT prophylaxis was initiated with aspirin, ONEL stockings and sequentials. He received prophylactic antibiotics in the form of Ancef according to protocol both preoperatively and postoperatively. He was started on physical therapy the day of surgery. He was able to walk in excess of 200 feet at that time. He progressively improved. Pt Condition on Discharge: Good Discharge Disposition: Disch w/ Home Health Serv Discharge Instructions Diet Instructions: As Tolerated, No Restrictions Activities You Can Perform: Full Weight Bearing, Shower Only-No Bath Activities to Avoid: Lifting/Bending, Strenuous Activity, Bathing, Driving Follow up Referrals: Orthopedics with Praveen Ferrera MD ([facility]) New Medications: Aspirin DR (Aspirin DR) 81 Mg Tabdr 81 MG PO BID for Prevent Blood Clot for 30 Days, #60 TAB Hydrocodone/Acetaminophen (Hydrocodone-Acetamin 7.5-325) 7.5 Mg-325 Mg Tablet 1 TAB PO Q4H PRN for PAIN SCALE 1 TO 10, #50 TAB Continued Medications: Amlodipine (Amlodipine) 5 Mg Tab 5 MG PO DAILY for Blood Pressure Management, #30 TAB 0 Refills Atorvastatin (Lipitor) 40 Mg Tab 60 MG PO HS for Cholesterol Management, #30 TAB 0 Refills Calcium Polycarbophil (Fiber) 625 Mg Tab 1250 MG PO PRN for CONSTIPATION, TAB 0 Refills Dorzolamide Opth Drops (Dorzolamide Opth Drops) 2% Soln 1 DROP EACH EYE BID for Glaucoma, #1 BOTTLE 0 Refills Fenofibrate (Fenofibrate) 145 Mg Tab 145 MG PO DAILY, #30 TAB 0 Refills Glucosamine (Glucosamine) 750 Mg Cap 750 MG PO DAILY for Herbal Supplements, CAP 0 Refills Hydrochlorothiazide (Hydrochlorothiazide) 25 Mg Tab 25 MG PO DAILY, #30 TAB 0 Refills Latanoprost Opth Drops (Latanoprost Opth Drops) 0.005% Drops 1 DROP EACH EYE HS for Glaucoma, #2.5 ML 0 Refills Refrigerate until opened. Lisinopril (Lisinopril) 40 Mg Tab 40 MG PO DAILY for Blood Pressure Management, #30 TAB 0 Refills Metformin (Metformin) 500 Mg Tab 500 MG PO BIDPC for Blood Sugar Management, #60 TAB 0 Refills With meals Multiple Vitamin (Multi-Vitamin Daily) 1 Tab Tab 1 TAB PO DAILY for Nutritional Supplement, TAB 0 Refills [place]-3 Fatty Acids (Fish Oil) 60 Mg-90 Mg-500 Mg Cap 1 CAP PO BID Discontinued Medications: Aspirin DR (Aspirin 81) 81 Mg Tabdr 81 MG PO DAILY, TAB 0 Refills Praveen Ferrera MD ([place]) Aug 29, 2017 10:11
[2017-08-29] MEDS ORDERED: ACETAMINOPHEN 325 MG TAB PO PRN (11:45)
--- NOTE | 2017-08-29 11:46 | HHI.PR ---
Subjective Remarks Follow-up diabetes mellitus and chronic kidney disease. Patient has no complaints. Patient made aware of elevated creatinine and AST to follow-up with PCP may need adjustment of metformin, lisinopril and hydrochlorothiazide. Discussed with RN Objective Vitals Vital Signs Date Time Temp Pulse Resp B/P (MAP) Pulse Ox O2 Delivery O2 Flow Rate FiO2 08/29/17 07:35 96.7 74 18 118/57 (77) 98 08/29/17 04:35 98.0 74 16 134/62 (86) 97 08/29/17 00:25 97.6 84 16 129/59 (82) 98 08/28/17 20:45 98.7 69 16 139/69 (92) 99 08/28/17 18:29 20 I/O 08/28/17 08/28/17 08/28/17 08/29/17 08/29/17 08/29/17 07:00 15:00 23:00 07:00 15:00 23:00 Intake Total 2080 ml 1041 ml 460 ml Output Total 150 ml Balance 1930 ml 1041 ml 460 ml Intake Oral 480 ml 360 ml 360 ml IV Total 681 ml 100 ml Other 1600 ml Output Estimated Blood Loss 150 ml # Voids 1 1 1 # Bowel Movements 0 0 0 Result Diagram: 08/29/17 0448 08/29/17 0448 Imaging Last Impressions Hip X-Ray 08/28/17 0000 Signed Impressions: Service Date/Time: Monday, August 28, 2017 10:04 - CONCLUSION: Appropriate postoperative appearance of the right hip status post total arthroplasty. Marco Max MD Objective Remarks GENERAL: NAD, A&Ox3 SKIN: Warm and dry. HEAD: Normocephalic. EYES: No scleral icterus. No injection or drainage. NECK: Supple, trachea midline. No JVD or lymphadenopathy. CARDIOVASCULAR: Regular rate and rhythm without murmurs, gallops, or rubs. RESPIRATORY: Breath sounds equal bilaterally. No accessory muscle use. GASTROINTESTINAL: Abdomen soft, non-tender, nondistended. MUSCULOSKELETAL: No cyanosis, or edema. Right hip bandaged BACK: Nontender without obvious deformity. No CVA tenderness. A/P Problem List: (1) Primary osteoarthritis of right hip ICD Code: M16.11 - Unilateral primary osteoarthritis, right hip (2) Status post total hip replacement, right ICD Code: Z96.641 - Presence of right artificial hip joint Assessment and Plan 76 year old male admitted for right hip replacement surgery Status post right hip replacement Osteoarthritis Post op Doing well Ortho following Glaucoma Continue eyedrop treatments DM2 Insulin Sliding Scale Diabetic Diet Continue metformin for now. Patient may need to be switched to another agent if kidney dysfunction continues to get worse HTN Hyperlipidemia Resume baseline treatments. Patient may need to be switched from lisinopril and Hydrocort thiazide if kidney dysfunction continues to get worse Follow BP Follow lipid levels as an outpatient. His AST is slightly elevated, patient aware to monitor and may need to decrease or stop statin. He is asymptomatic Kidney disease likely chronic stage III. Nonoliguric. Avoid nephrotoxins. Close monitoring outpatient Discharge Planning stable for Jerome Larios MD Aug 29, 2017 11:46
[2017-08-29 12:00] VITALS: BP 113/53; PULSE 50; RESP 18; TEMP 96.7; O2SAT 98
[2017-08-29] MEDS ORDERED: DOCUSATE SODIUM 100 MG CAP PO SCH (21:00)
== END 2017-08-29 15:44 | disposition home health service (06) | DRG 470 ==
LOC: HSDI 05:11 → N06A 10:53
PROVIDERS: ADMIT Orthopaedic Surgery; ATTEND Orthopaedic Surgery
PROC: 0SR902A Replacement of Right Hip Joint with Metal on Polyethylene Synthetic Substitute, Uncemented, Open Approach (ICD-10-PCS; principal; 2017-08-28 06:36)
DX: M16.11 Unilateral primary osteoarthritis, right hip (principal); E11.22 Type 2 diabetes mellitus with diabetic chronic kidney disease; N18.3 Chronic kidney disease, stage 3 (moderate); I12.9 Hypertensive chronic kidney disease with stage 1 through stage 4 chronic kidney disease, or unspecified chronic kidney disease; H40.9 Unspecified glaucoma; E78.5 Hyperlipidemia, unspecified; M10.9 Gout, unspecified; Z79.84 Long term (current) use of oral hypoglycemic drugs
CPT/HCPCS: 73502; 80053; 85014; 85018; 85025; 86850; 86900; 86901; C1776; C9290; J0131; J0690; J1580; J1885; J7120; L1830

== ENCOUNTER 2018-07-18 16:31 | Observation (INO) ==
--- NOTE | 2018-07-18 17:51 | ED ---
HPI General Chief complaint: Allergic Reaction Stated complaint: Facial swelling x 5 hr Time Seen by Provider: 07/18/18 17:03 Source: patient Mode of arrival: ambulatory Limitations: no limitations History of Present Illness HPI narrative: 77yo M with PMH of HTN on lisinopril presents to the ED with c/o upper lip swelling since 10am today. Said he was home and it has gradually gotten worst and now his face feels tighter. Denies any new medication, new food, lotion, fever, chest pain, sob, n/v, abdominal pain, focal weakness or numbness. Pt also went outside at around 1pm and had a bug bite in his right arm. He used a suction device and now it is swollen. Said the lip swelling was getting worst prior to the bug bite. Related Data Home Medications Medication Instructions Recorded Confirmed amlodipine 5 mg PO DAILY 07/18/18 07/18/18 aspirin [Aspir-81] 81 mg PO DAILY 07/18/18 07/18/18 atorvastatin 60 mg PO DAILY 07/18/18 07/18/18 dorzolamide 1 drp OPHTHALMIC (EYE) TID 07/18/18 07/18/18 fenofibrate nanocrystallized 145 mg PO DAILY 07/18/18 07/18/18 glucosamine sulfate [Glucosamine] 500 mg PO DAILY 07/18/18 07/18/18 hydrochlorothiazide 25 mg PO DAILY 07/18/18 07/18/18 latanoprost 1 drp OPHTHALMIC (EYE) QPM 07/18/18 07/18/18 metformin 1,000 mg PO BID 07/18/18 07/18/18 multivitamin [Multiple Vitamins] 1 tab PO DAILY 07/18/18 07/18/18 omega 7-bkb-tnk-fish oil [Fish Oil] 1 cap PO DAILY 07/18/18 07/18/18 psyllium husk [Fiber-Caps 1.04 g PO DAILY 07/18/18 07/18/18 (psyllium husk)] Allergies Allergy/AdvReac Type Severity Reaction Status Date / Time No Known Allergies Allergy Verified 07/18/18 16:50 Review of Systems ROS: all other systems reviewed are negative PMFSH Family History Family History Other Family history normal Social History Social History Substance History: No History of Abuse Second Hand Smoke Exposure: No Smoking Status: Former smoker Tobacco Type: Cigarettes How Often Do You Have a Drink Containing Alcohol: 4 or more times a week Recent Travel in [facility] within the Last 8 Weeks: No Recent Out of Country Travel within the Last 8 Weeks: Yes Substance Abuse Detail Alcohol: Substance Use Status: Active Route Used Substance Abuse: By Mouth Substance Frequency: 2 martini's/day Immunization History Tetanus Immunization: Unsure Exam Narrative Exam Narrative: GENERAL: 77yo M in mild distress. SKIN: Focused skin assessment warm/dry. HEAD: Atraumatic. Normocephalic. EYES: Pupils equal and round. No scleral icterus. No injection or drainage. ENT: Uvula midline. No tongue swelling. FACE: +Marked edema diffusely upper lip. There is some erythema in bilateral maxilla. NECK: Trachea midline. No JVD. CARDIOVASCULAR: Regular rate and rhythm. No murmur appreciated. RESPIRATORY: No accessory muscle use. Clear to auscultation. Breath sounds equal bilaterally. GASTROINTESTINAL: Abdomen soft, non-tender, nondistended. MUSCULOSKELETAL: +Erythematous swelling volar aspect of right arm from the suction device. +bug bite. NEUROLOGICAL: Awake and alert. No obvious cranial nerve deficits. Motor grossly within normal limits. Normal speech. PSYCHIATRIC: Appropriate mood and affect; insight and judgment normal. Course Initial Documented Vital Signs Temperature 99.0 F 07/18/18 16:50 Pulse Rate 63 07/18/18 16:50 Respiratory Rate 16 07/18/18 16:50 Blood Pressure 145/68 H 07/18/18 16:50 Pulse Oximetry 98 07/18/18 16:50 Last Documented Vital Signs Temperature 99.4 F 07/19/18 12:00 Pulse Rate 82 07/19/18 12:00 Respiratory Rate 20 07/19/18 12:00 Blood Pressure 133/60 07/19/18 12:00 Pulse Oximetry 97 07/19/18 12:00 Medical Decision Making MDM Narrative Medical decision making narrative: 77yo M here with upper lip swelling that has been progressively getting worst and now his face feels tighter since 10am. No airway compromise at this time. Likely from KATHIE inhibitor but pt also had bug bite today. Pt given epinephrine 0.3mg IM and placed on cardiac surgeon. Basic labs obtained in case he needs to be admitted. Plan for now is to observe in the ED for improvement of symptoms. Labs reviewed, no leukocytosis. BUN/creatinine is mildly elevated but at baseline. Pt reevaluated at bedside after epinephrine and has no improvement. Does not seem to worsen either. Given how close it is to the airway, recommended observation overnight. Discussed with Dr. Olsen and accepted to his service. Medical Screen Exam Complete: Yes Emergency Medical Condition: Yes Differential Diagnosis Differential Diagnosis: Angioedema secondary to KATHIE inhibitor vs. anaphylaxis vs. cellulitis Lab Data Result diagrams: 07/18/18 17:20 07/19/18 05:03 Lab Results 07/18/18 07/18/18 07/18/18 Range/Units 17:20 17:20 21:13 CBC w Diff Auto diff final WBC 7.6 (4.0-11.0) th/mm3 RBC 4.22 L (4.50-5.90) mil/mm3 Hgb 13.3 (13.0-17.0) gm/dL Hct 38.5 L (39.0-51.0) % MCV 91.2 (80.0-100.0) fL MCH 31.4 (27.0-34.0) pg MCHC 34.5 (32.0-36.0) % RDW 13.3 (11.6-17.2) % Plt Count 213 (150-450) th/mm3 MPV 8.2 (7.0-11.0) fL Neut % (Auto) 71.5 H (16.0-70.0) % Lymph % (Auto) 18.9 (9.0-44.0) % [place] % (Auto) 7.3 (0.0-8.0) % Eos % (Auto) 1.8 (0.0-4.0) % Baso % (Auto) 0.5 (0.0-2.0) % Neut # (Auto) 5.5 (1.8-7.7) th/mm3 Lymph # (Auto) 1.4 (1.0-4.8) th/mm3 [place] # (Auto) 0.6 (0.0-0.9) th/mm3 Eos # (Auto) 0.1 (0.0-0.4) th/mm3 Baso # (Auto) 0.0 (0.0-0.2) th/mm3 WBC Differential . Differential Comment . Sodium 139 (136-145) meq/L Potassium 4.2 (3.5-5.1) meq/L Chloride 105 (98-107) meq/L Carbon Dioxide 26.7 (21.0-32.0) meq/L Anion Gap 7 (5-15) meq/L BUN 28 H (7-18) mg/dL Creatinine 1.40 H (0.60-1.30) mg/dL Estimated GFR 49 L (>89) mL/min POC Glucose 85 (68-110) mg/dl Random Glucose 99 (74-106) mg/dL Calcium 9.4 (8.5-10.1) mg/dL 07/19/18 07/19/18 07/19/18 Range/Units 05:03 07:43 11:38 CBC w Diff WBC (4.0-11.0) th/mm3 RBC (4.50-5.90) mil/mm3 Hgb (13.0-17.0) gm/dL Hct (39.0-51.0) % MCV (80.0-100.0) fL MCH (27.0-34.0) pg MCHC (32.0-36.0) % RDW (11.6-17.2) % Plt Count (150-450) th/mm3 MPV (7.0-11.0) fL Neut % (Auto) (16.0-70.0) % Lymph % (Auto) (9.0-44.0) % [place] % (Auto) (0.0-8.0) % Eos % (Auto) (0.0-4.0) % Baso % (Auto) (0.0-2.0) % Neut # (Auto) (1.8-7.7) th/mm3 Lymph # (Auto) (1.0-4.8) th/mm3 [place] # (Auto) (0.0-0.9) th/mm3 Eos # (Auto) (0.0-0.4) th/mm3 Baso # (Auto) (0.0-0.2) th/mm3 WBC Differential Differential Comment Sodium 140 (136-145) meq/L Potassium 3.8 (3.5-5.1) meq/L Chloride 106 (98-107) meq/L Carbon Dioxide 25.4 (21.0-32.0) meq/L Anion Gap 9 (5-15) meq/L BUN 23 H (7-18) mg/dL Creatinine 1.10 (0.60-1.30) mg/dL Estimated GFR 65 L (>89) mL/min POC Glucose 113 H 147 H (68-110) mg/dl Random Glucose 106 (74-106) mg/dL Calcium 8.8 (8.5-10.1) mg/dL Discharge Plan Discharge Disposition Patient Disposition: 30 Still Patient Discharge Condition Condition: Stable Discharge Order Discharge Orders: Discharge Order (Routine); Ordered 07/19/18 Ordered By: Dylan Olsen Discharge Details Diagnosis: Angioedema Physicians Team ED Provider: Naina Bruce Primary Care Provider: Primary Care Christina Peña Attending Provider: Dylan Olsen Status ED Status: Left Department Discharge Information Discharge Date/Time: 07/18/18 21:16
[2018-07-18 18:00] LABS: Baso % (Auto) 0.5 % (0.0-2.0); Eos # (Auto) 0.1 th/mm3 (0.0-0.4); Eos % (Auto) 1.8 % (0.0-4.0); Hematocrit 38.5 % (39.0-51.0); Hemoglobin 13.3 gm/dL (13.0-17.0); Lymph # (Auto) 1.4 th/mm3 (1.0-4.8); Lymph % (Auto) 18.9 % (9.0-44.0); Mean Corpuscular HGB Conc 34.5 % (32.0-36.0); Mean Corpuscular Hemoglobin 31.4 pg (27.0-34.0); Mean Corpuscular Volume 91.2 fL (80.0-100.0); Mean Platelet Volume 8.2 fL (7.0-11.0); Mono # (Auto) 0.6 th/mm3 (0.0-0.9); Mono % (Auto) 7.3 % (0.0-8.0); Neut # (Auto) 5.5 th/mm3 (1.8-7.7); Neut % (Auto) 71.5 % (16.0-70.0); Platelet Count 213 th/mm3 (150-450); Red Blood Count 4.22 mil/mm3 (4.50-5.90); Red Cell Distribution Width 13.3 % (11.6-17.2); White Blood Count 7.6 th/mm3 (4.0-11.0)
[2018-07-18 18:13] LABS: Potassium 4.2 meq/L (3.5-5.1)
[2018-07-18 18:15] LABS: Calcium 9.4 mg/dL (8.5-10.1)
[2018-07-18 18:16] LABS: Carbon Dioxide 26.7 meq/L (21.0-32.0)
[2018-07-18] MEDS ORDERED: Dextrose 50% in Water 50 ML Vial IV.PUSH PRN (19:04)
[2018-07-18] MEDS: Famotidine 20 MG Tablet PO SCH (20:00)
[2018-07-18] MEDS: Sod Chloride 0.9% Inj 1,000 ML IV.CONT SCH (20:23)
[2018-07-18 21:37] VITALS: RESP 20
[2018-07-18] MEDS: Insulin NovoLOG Aspart Correctional Sugar Inj SQ SCH (21:54)
[2018-07-19 05:36] LABS: Potassium 3.8 meq/L (3.5-5.1)
[2018-07-19 05:39] LABS: Calcium 8.8 mg/dL (8.5-10.1)
[2018-07-19 05:40] LABS: Carbon Dioxide 25.4 meq/L (21.0-32.0)
[2018-07-19] MEDS: Sod Chloride 0.9% Inj 1,000 ML IV.CONT SCH (06:12)
--- NOTE | 2018-07-19 08:02 | P.HPIM ---
History of Present Illness Primary Care Physician: No Primary Care Physician Chief Complaint: swelling of the lip History of Present Illness: patient is a 77 y/o male with history of hypertension and diabetes who presented to ER with swelling of the upper lip. he says that he noticed that his upper lip was getting swollen yesterday. it gradually got worse during the day and then he says that his cheeks started to get swollen. he denies any sob, wheezing. he says that he had a bug bite on his right arm but this was after he had lip swelling.he denies any similar episodes in the past. he says that the swelling of the face and lips has improved over night. Review of Systems All other systems reviewed negative except as stated in HPI PMFSH - History History Provided By: Patient - Medical History Medical History: Medical History (Last Reviewed 07/19/18 @ 07:57 by Dylan Olsen MD) Diabetes High cholesterol Hypertension Skin cancer - Surgical History Surgical History: Surgical History (Last Reviewed 07/19/18 @ 07:57 by Dylan Olsen MD) History of hip replacement - Family History Family History: Family History (Last Updated 07/19/18 @ 07:57 by Dylan Olsen MD) Other Family history normal - Tobacco History Second Hand Smoke Exposure: No Tobacco Use In Past 30 Days: No Smoking Status: Former smoker Tobacco Type: Cigarettes - Alcohol History How Often Do You Have a Drink Containing Alcohol: 4 or more times a week - Substance Use History Substance History: No History of Abuse - Substance Use Type Alcohol Status: Active Route Used: By Mouth Frequency: 2 martini's/day - Travel History Recent Travel in the [facility] Within the Last 8 Weeks: No Recent Travel Out of the Country Within the Last 8 Weeks: Yes - Immunization History Tetanus Immunization: Unsure Medications and Allergies Active Medications: Active Medications Dextrose (D50w Vial) 50 ml IV.PUSH UNSCH PRN PRN Reason: PER HYPOGLYCEMIA PROTOCOL Diphenhydramine HCl (Benadryl) 25 mg PO Q6H [facility] Last Admin: 07/19/18 01:05 Dose: 25 mg Famotidine (Pepcid) 20 mg PO BID [facility] Last Admin: 07/18/18 20:00 Dose: 20 mg Glucagon (Glucagon Inj) 1 mg OTHER PRN PRN PRN Reason: for Hypoglycemia Protocol Sodium Chloride (Ns Inj) 1,000 mls @ 84 mls/hr IV.CONT .[id number] [facility] Last Admin: 07/19/18 06:12 Dose: Not Given Insulin Aspart (Novolog Insulin [employer] Sugar Inj) 0 unit SQ ACHS CHEIKH; Protocol Last Admin: 07/18/18 21:54 Dose: Not Given Allergies Allergy/AdvReac Type Severity Reaction Status Date / Time No Known Allergies Allergy Verified 07/18/18 16:50 Home Medications Medication Instructions Recorded Confirmed Type amlodipine 5 mg PO DAILY 07/18/18 07/18/18 History aspirin [Aspir-81] 81 mg PO DAILY 07/18/18 07/18/18 History atorvastatin 60 mg PO DAILY 07/18/18 07/18/18 History dorzolamide 1 drp OPHTHALMIC (EYE) TID 07/18/18 07/18/18 History fenofibrate nanocrystallized 145 mg PO DAILY 07/18/18 07/18/18 History glucosamine sulfate [Glucosamine] 500 mg PO DAILY 07/18/18 07/18/18 History hydrochlorothiazide 25 mg PO DAILY 07/18/18 07/18/18 History latanoprost 1 drp OPHTHALMIC (EYE) QPM 07/18/18 07/18/18 History lisinopril 40 mg PO DAILY 07/18/18 07/18/18 History metformin 1,000 mg PO BID 07/18/18 07/18/18 History multivitamin [Multiple Vitamins] 1 tab PO DAILY 07/18/18 07/18/18 History omega 8-kbj-soq-fish oil [Fish Oil] 1 cap PO DAILY 07/18/18 07/18/18 History psyllium husk [Fiber-Caps 1.04 g PO DAILY 07/18/18 07/18/18 History (psyllium husk)] Exam Vital signs: Vital Signs 07/18/18 16:50 07/18/18 17:50 07/18/18 20:19 Temperature 99.0 F Pulse Rate 63 77 74 Respiratory Rate 16 14 18 Blood Pressure 145/68 H 136/71 134/74 Pulse Oximetry 98 97 98 07/18/18 21:35 07/19/18 00:00 07/19/18 04:00 Temperature 96.5 F L 96.6 F L Pulse Rate 79 60 77 Respiratory Rate 20 20 20 Blood Pressure 137/65 123/62 115/57 L Pulse Oximetry 98 98 97 Intake & Output 07/18/18 07/19/18 07/19/18 18:59 06:59 18:59 Intake Total 120 / 120 Balance 120 / 120 Weight 96.5 kg 93.3 kg Intake: Oral 120 / 120 Other: # Voids 2 Weight On Admission 96.5 kg - Constitutional no acute distress - Routine HEENT Exam Eye: Present: PERRL Comments: lips are swollen along with some swelling of the cheeks. - Routine Neck Exam Present: full ROM - Routine Respiratory Exam Present: CTA bilaterally - Routine Cardiovascular Exam Present: RRR - Routine Abdominal Exam Present: soft - Routine Extremities Exam Comments: no pedal edema. - Routine Skin Exam Present: erythema (over the right arm-) - Routine Neurological Exam Present: alert, oriented X3 Results - Labs CBC & Chem 7: 07/18/18 17:20 07/19/18 05:03 Labs: Short CBC 07/18/18 Range/Units 17:20 WBC 7.6 (4.0-11.0) th/mm3 Hgb 13.3 (13.0-17.0) gm/dL Hct 38.5 L (39.0-51.0) % Plt Count 213 (150-450) th/mm3 BMP 07/18/18 07/19/18 17:20 05:03 Sodium 139 140 Potassium 4.2 3.8 Chloride 105 106 Carbon Dioxide 26.7 25.4 BUN 28 H 23 H Creatinine 1.40 H 1.10 Calcium 9.4 8.8 Caprini VTE Risk Assessment Caprini VTE Risk Assessment: Moderate/High Risk (score >= 2) Caprini Risk Assessment Model: Point Value = 1 Point Value = 2 Point Value = 3 Point Value = 5 Age 41-60 Minor surgery BMI > 25 kg/m2 Swollen legs Varicose veins or History of unexplained or recurrent spontaneous Oral contraceptives or hormone replacement Sepsis (< 1 month) Serious lung disease, including pneumonia (< 1 month) Abnormal pulmonary function Acute myocardial infarction Congestive heart failure (< 1 month) History of inflammatory bowel disease Medical patient at bed rest Age 61-74 Arthroscopic surgery Major open surgery (> 45 min) Laparoscopic surgery (> 45 min) Malignancy Confined to bed (> 72 hours) Immobilizing plaster cast Central venous access Age >= 75 History of VTE Family history of VTE Factor V Leiden Prothrombin [id number] Lupus anticoagulant Anticardiolipin antibodies Elevated serum homocysteine Heparin-induced thrombocytopenia Other congenital or acquired thrombophilia Stroke (< 1 month) Elective arthroplasty Hip, pelvis, or leg fracture Acute spinal cord injury (< 1 month) Prophylaxis Regimen: Total Risk Factor Score Risk Level Prophylaxis Regimen 0-1 Low Early ambulation 2 Moderate Order ONE of the following: *Sequential Compression Device (SCD) *Heparin 5000 units SQ BID 3-4 Higher Order ONE of the following medications: *Heparin 5000 units SQ TID *Enoxaparin/Lovenox 40 mg SQ daily (WT < 150 kg, CrCl > 30 mL/min) *Enoxaparin/Lovenox 30 mg SQ daily (WT < 150 kg, CrCl > 10-29 mL/min) *Enoxaparin/Lovenox 30 mg SQ BID (WT < 150 kg, CrCl > 30 mL/min) AND/OR *Sequential Compression Device (SCD) 5 or more Highest Order ONE of the following medications: *Heparin 5000 units SQ TID (Preferred with Epidurals) *Enoxaparin/Lovenox 40 mg SQ daily (WT < 150 kg, CrCl > 30 mL/min) *Enoxaparin/Lovenox 30 mg SQ daily (WT < 150 kg, CrCl > 10-29 mL/min) *Enoxaparin/Lovenox 30 mg SQ BID (WT < 150 kg, CrCl > 30 mL/min) AND *Sequential Compression Device (SCD) Assessment and Plan - Plan A/P - angioedema- patient is on lisinopril dc lisinopril- continue with Benadryl and Zantac. received epinephrine in ER- continue to monitor. -SUZANNA- improved- will stop IV fluid. -hypertension; dc lisinopril- hold other BP meds and monitor for now. Discussed Condition With: ER physician and the patient. Discharge Planning: dc home within the next 24 hrs if continues to improve. H&P: Quality - VTE Deep Vein Thrombosis/Pulmonary Embolism Present on Admission: No
[2018-07-19] MEDS ORDERED: Fenofibrate 145 MG Tablet PO SCH (09:00)
[2018-07-19] MEDS: Famotidine 20 MG Tablet PO SCH (09:05)
[2018-07-19] MEDS: Insulin NovoLOG Aspart Correctional Sugar Inj SQ SCH ×2 (09:07→12:28)
[2018-07-19] MEDS: Dorzolamide 2% Opth Drops 10 ML Bottle EACH EYE SCH ×2 (09:08→13:00)
--- NOTE | 2018-07-19 13:38 | P.PNADD ---
Addendum to Inpatient Note Reason for Addendum: Additional Documentation (patient was seen and examined again; the facial swelling and the swelling of the lips has much improved. no tongue swelling, sob. he wants to go home. he will be discharged home with f/u with his pcp. his lisinopril will be discontinued and this was d/w the patient.)
[2018-07-19 13:58] VITALS: BP 133/60; PULSE 82; TEMP 99.4; O2SAT 97
[2018-07-19] MEDS ORDERED: Latanoprost 0.005% Opth Drops 2.5 ML Bottle EACH EYE SCH (18:00)
== END 2018-07-19 15:03 | disposition home or self-care (01) ==
LOC: PHEDA 16:31 → PHED 16:31 → PH3 21:05
PROVIDERS: ADMIT Internal Medicine; ATTEND Internal Medicine